=== PATIENT | male | born 1940 | race Caucasian/White ===

== ENCOUNTER → 2021-04-13 13:38 | Outpatient (CLI) | payer MEDICARE, OTHER, SELFPAY | PROVIDERS: Visit Provider Nurse Practitioner | DX: Z20.822 Contact with and (suspected) exposure to COVID-19 (principal) | CPT/HCPCS: C9803; U0003; U0005 ==

== ENCOUNTER 2024-03-03 09:33 | Emergency (ER) | payer MEDICARE, OTHER, SELFPAY ==
[2024-03-03] VITALS (8 sets, daily range): BP systolic 134–174; BP diastolic 69–98; PULSE 52–74; RESP 14–17; TEMP 36.6; O2SAT 93–98; BMI 27.2
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
--- NOTE | 2024-03-03 10:31 | CT_ITS ---
FINAL REPORT CLINICAL HISTORY: R sided vision disturbances, transient loss FINDINGS: CT NECK ANGIO, WITHOUT AND WITH CONTRAST TECHNIQUE: Thin section axial CT with contrast with multiplanar 3D MIP reconstruction. This study was performed with techniques to keep radiation doses as low as reasonably achievable, (ALARA). Individualized dose reduction techniques using automated exposure control or adjustment of mA and/or kV according to the patient''s size were employed. NASCET criteria and technique was utilized during interpretation. FINDINGS: Aortic arch: Arch shows no significant narrowing. Great vessel origins are widely patent. Right carotid: No significant stenosis is seen of the cervical common or internal carotid artery. Left carotid: No significant stenosis is seen of the cervical common or internal carotid artery. Vertebrals: Left vertebral artery is dominant. No significant stenosis is present. IMPRESSION: No significant stenosis of the cervical carotid arteries This study was performed using automated techniques to achieve radiation exposure as low as reasonably Reviewed, Interpreted and Dictated by Josh Westfall MD Transcribed by Jessica Simental Authenticated and [facility]
--- NOTE | 2024-03-03 10:31 | CT_ITS ---
FINAL REPORT TECHNIQUE: Multiple axial CT angiography images were performed from the foramen magnum to the vertex before and during IV contrast administration. This study was performed with techniques to keep radiation doses as low as reasonably achievable (ALARA). Individualized dose reduction techniques using automated exposure control or adjustment of mA and/or kV according to the patient's size were employed. CLINICAL HISTORY: R sided vision disturbances, transient loss FINDINGS: No acute intracranial hemorrhage or large acute cortical infarct. The brain volume is normal for the patient's age. Ventricles are of bracket normal in size and configuration. No midline shift. The basal cisterns are patent. CTA HEAD: The major intracranial arterial system is patent without hemodynamically significant stenosis or major vessel occlusion.No aneurysm is identified. IMPRESSION: No acute intracranial hemorrhage or large acute cortical infarct. No evidence of vascular injury, aneurysm, hemodynamically significant stenosis or major vessel occlusion of the intracranial arterial system. Reviewed, Interpreted and Dictated by Josh Westfall MD Transcribed by Jessica Simental Authenticated and [facility]
--- NOTE | 2024-03-03 10:31 | CT_ITS ---
FINAL REPORT TECHNIQUE: Noncontrast exam This study was performed with techniques to keep radiation doses as low as reasonably achievable, (ALARA). Individualized dose reduction techniques using automated exposure control or adjustment of mA and/or kV according to the patient''s size were employed. CLINICAL HISTORY: R sided vision disturbances, transient loss FINDINGS: There is a small area of encephalomalacia in the right frontal lobe. There are moderate chronic microvascular changes. No abnormal density is seen. Ventricles are normal. There is no hemorrhage. No mass effect is seen. Bone windows show no evidence of fracture. IMPRESSION: No acute findings Reviewed, Interpreted and Dictated by Josh Westfall MD Transcribed by Jessica Simental Authenticated and [facility]
[2024-03-03 10:35] LABS: Basophils # 0.1 K/mm3 (0-0.2); Basophils % 1.1 % (0.1-2.0); Eosinophils # 0.1 K/mm3 (0.0-0.4); Eosinophils % 2.8 % (0.1-12.0); Hematocrit 46.8 % (42.0-52.0); Hemoglobin 15.9 g/dL (14.1-18.0); Lymphocytes # 1.4 K/mm3 (0.7-4.5); Lymphocytes % 28.1 % (10-50); Mean Corpuscular HGB Conc 33.9 g/dL (31.8-35.4); Mean Corpuscular Hemoglobin 31.5 pg (27.0-31.2); Mean Corpuscular Volume 92.9 fl (80-94); Mean Platelet Volume 6.9 fl (7.4-10.4); Monocytes # 0.4 K/mm3 (0.1-1.0); Monocytes % 7.8 % (1.7-9.3); Neutrophils % 60.2 % (37.0-80.0); Platelet Count 181 K/mm3 (142-424); Red Blood Count 5.04 M/mm3 (4.60-6.20); Red Cell Distribution Width 13.4 % (11.5-17.5); White Blood Count 4.9 K/mm3 (4.8-10.8)
--- NOTE | 2024-03-03 10:40 | ECG_ITS ---
APPROVED REPORT Exam: Resting ECG HR:54 bpm ECG Measurements Heart Rate 54 AXES VA 174 P 73 QRSd 91 QRS 39 QT 416 T 63 QTc 402 Conclusion Sinus bradycardia Electronically signed by : RORY GAYTAN, 03/03/2024 16:10:15
[2024-03-03 10:44] LABS: Albumin Level 3.9 g/dl (3.5-5.0); Chloride 106 mmol/L (98-107)
[2024-03-03 10:45] LABS: Potassium 4.5 mmoL/L (3.5-5.1); Sodium 132 mmol/L (136-145)
[2024-03-03 10:47] LABS: Alanine Aminotransferase 31 U/L (12-78); Anion Gap 3.5 mEq/L (5-15); Aspartate Amino Transferase 35 U/L (17-59); Blood Urea Nitrogen 20 mg/dl (9-20); Carbon Dioxide 27 mmol/L (22.0-30.0); Creatinine Clearance Estimated 71 mL/min (50-200); Estimated Glomerular Filt Rate 81 ml/min (>60); GFR (African American) 98 ML/MIN (>60)
[2024-03-03 10:48] LABS: Albumin/Globulin Ratio 1.6 (1.1-1.8); Alkaline Phosphatase 79 U/L (38-126); Bilirubin,Total 0.9 mg/dl (0.2-1.3); Calcium 9.1 mg/dl (8.4-10.2); Globulin 2.4 g/dL (1.3-3.2); Glucose 96 mg/dl (74-100); Total Protein,Serum 6.3 g/dl (6.3-8.2)
[2024-03-03 10:54] LABS: Activated Partial Thrombo Time 27.4 seconds (22.8-30.6); INR 0.95 (0.9-1.1); Prothrombin Time 10.7 seconds (10.1-12.5)
[2024-03-03 11:02] LABS: Erythrocyte Sedimentation Rate 10 mm/hr (0-20)
[2024-03-03] MEDS: IOPAMIDOL-370 (76%);100ML BOTTLE 80 ML IV (11:30)
[2024-03-03] MEDS: SODIUM CHLORIDE 0.9% 10ML SYR (RAD ONLY) 10 ML IV (11:30)
[2024-03-03] MEDS: 0.9 % SODIUM CHLORIDE 50 ML VIAL IV (11:30)
--- NOTE | 2024-03-03 12:02 | PC.NURSE ---
I spoke to radiology for results on CT's. They stated they are being read at this time.
--- NOTE | 2024-03-03 12:22 | PC.NURSE ---
Called [facility] to speak with Opthamology about this pt with intermittent vision loss. Radiology powershared disc and Dr Martinez is speaking with [facility] at this time
--- NOTE | 2024-03-03 13:09 | PC.NURSE ---
report called to [facility]
== END 2024-03-03 13:14 | disposition short-term general hospital (02) ==
PROVIDERS: Emergency Provider Emergency Medicine
DX: H53.121 Transient visual loss, right eye (principal); H54.61 Unqualified visual loss, right eye, normal vision left eye
CPT/HCPCS: 70450; 70496; 70498; 80053; 85025; 85610; 85651; 85730; 86140; 93005; 99285; Q9967